=== PATIENT | male | born 1965 | race African-American/Black ===

== ENCOUNTER 2024-02-22 19:52 | Emergency (ER) | payer OTHER ==
[2024-02-22 20:07] VITALS: BP 123/66
[2024-02-22 20:16] VITALS: BP 117/65
[2024-02-22 20:30] VITALS: BP 112/65
[2024-02-22] MEDS ORDERED: DIPHEN/ATROP2.5 MG PO (20:35)
[2024-02-22] MEDS ORDERED: OLMESARTAN MEDO1 TA1 PO (20:35)
[2024-02-22 20:42] LABS: BASO% 0.4 % (0-3); HEMATOCRIT 32.2 % (39.0-50.0); HEMOGLOBIN 10.4 g/dl (14.0-18.0); IMMATURE GRANULOCYTES 0.1 % (0.0-5.0); LYMPH% 24.8 % (15-41); MEAN CELL VOLUME 84.7 fL CALC (80.0-100.0); MEAN CORPUSCULAR HGB 27.4 pG CALC (26.0-32.0); MEAN CORPUSCULAR HGB CONC 32.3 g/dL CAL (32.0-36.0); MONO% 9.1 % (2-13); NEUT# 5.29 thou/uL (1.82-7.42); NEUT% 63.6 % (42-76); RED BLOOD COUNT 3.8 mill/uL (4.70-6.10)
[2024-02-22 20:45] VITALS: BP 103/60
[2024-02-22 20:52] LABS: ALBUMIN 4.1 g/dL (3.2-5.0); BILIRUBIN, TOTAL 0.6 mg/dL (0.2-1.3); CREATININE 1.9 mg/dL (0.7-1.3); POTASSIUM 3.6 mmol/l (3.5-5.1); TOTAL PROTEIN 7.8 g/dL (6.3-8.2)
[2024-02-22 21:00] VITALS: BP 107/63
[2024-02-22 21:00] LABS: D-DIMER 3.86 mg/L (0.19-0.60)
[2024-02-22 21:06] LABS: ACT PARTIAL THROMBO TIME 30.9 SECONDS (20.0-32.5)
[2024-02-22 21:07] LABS: PROTHROMBIN TIME 9.8 SECONDS (9.0-12.5)
[2024-02-22 22:56] LABS: URINE BILIRUBIN - DIPSTICK Negative (NEGATIVE); URINE BLOOD DIPSTICK Negative (NEGATIVE); URINE GLUCOSE - DIPSTICK Negative (NEGATIVE); URINE KETONE Trace mg/dL (NEGATIVE); URINE LEUK ESTERASE Negative (NEGATIVE); URINE NITRITE - DIPSTICK Negative (Negative); URINE PH 5.5 (4.5-8.0); URINE PROTEIN - DIPSTICK Negative (NEG-TRACE); URINE UROBILINOGEN - DIPSTICK 0.2 E.U./dL (0.2)
[2024-02-22 22:57] LABS: URINE COLOR Yellow
[2024-02-23] MEDS ORDERED: CARDIZEM CD240 MG PO (00:05)
[2024-02-23] MEDS ORDERED: VOLTAREN - GENE75 MG PO (00:05)
[2024-02-23] MEDS ORDERED: MAXZIDE-25MG1 COMBO PO (00:05)
[2024-02-23 00:17] VITALS: BP 107/63
== END 2024-02-23 00:17 | disposition home or self-care (01) | DRG 948 ==
LOC: ED 19:52
PROVIDERS: Family Medicine
DX: R60.0 Localized edema (principal); I12.9 Hypertensive chronic kidney disease with stage 1 through stage 4 chronic kidney disease, or unspecified chronic kidney disease; N18.30 Chronic kidney disease, stage 3 unspecified